=== PATIENT | female | born 1955 | race Caucasian/White ===

== ENCOUNTER 2019-07-06 19:03 | Emergency (ER) | payer MEDICAID ==
[~2019-07-06] VITALS: Ht 170.2 cm; Wt 59.0 kg
[2019-07-06 19:10] VITALS: BP_SYST 167
[2019-07-06 20:14] LABS: BASOPHILS % (AUTO) 0.4 % (0.0-2.0); HEMOGLOBIN 9.6 g/dL (12.0-16.0); LYMPHOCYTES # (AUTO) 0.8 K/uL (1.0-5.5); LYMPHOCYTES % (AUTO) 7.7 % (20.5-51.5); MEAN CORPUSCULAR HEMOGLOBIN 29 pg (27-31); MEAN CORPUSCULAR HGB CONC 34 % (32-36); MEAN CORPUSCULAR VOLUME 85 fL (79.0-98.0); NEUTROPHILS # (AUTO) 8.2 K/uL (1.8-7.7); NEUTROPHILS % (AUTO) 81.9 % (40.0-70.0); PLATELET COUNT (AUTO) 362 K/uL (130-430); RED BLOOD CELL COUNT(AUTO) 3.31 MIL/uL (4.2-6.2); RED CELL DISTRIBUTION WIDTH 15.4 % (9.0-15.0)
[2019-07-06 20:25] LABS: CALCIUM 9.7 mg/dL (8.4-11.0); CREATININE 0.94 mg/dL (0.55-1.30); POTASSIUM 3.9 mmol/L (3.5-5.1)
[2019-07-06 20:30] LABS: TOTAL BILIRUBIN 5.6 mg/dL (0.0-1.0)
[2019-07-06 21:31] LABS: BILIRUBIN,URINE 3+ (NEGATIVE); BLOOD, URINE 2+ (NEGATIVE); CLARITY/URINE SL HAZY (CLEAR); GLUCOSE,URINE NEGATIVE (NEGATIVE); KETONES,URINE 1+ (NEGATIVE); LEUKOCYTE ESTERASE ,URINE NEGATIVE (NEGATIVE); NITRITE, URINE POSITIVE (NEGATIVE); PH,URINE 5.5 (5.0-8.0); PROTEIN URINE 2+ (NEGATIVE)
[2019-07-06 21:33] LABS: COLOR,URINE AMBER (YELLOW)
[2019-07-06 21:46] LABS: BACTERIA,URINE FEW /HPF (None Seen); RBC,URINE 0-3 /HPF (0-3)
[2019-07-06] MEDS ORDERED: ONDANSETRON HCL 4 MG/2 ML VIAL IVP ONE (22:15)
[2019-07-06] MEDS ORDERED: NACL 0.9% 1,000 ML IV ONE (22:15)
[2019-07-06] MEDS ORDERED: MORPHINE 2 MG/ML INJ. SYRINGE IVP ONE (22:45)
[2019-07-07] MEDS: CEPHALEXIN 500 MG CAPSULE PO ONE ×2 (00:48→00:56)
[2019-07-07] MEDS ORDERED: SULFAMETHOXAZOLE/TRIMETHOPR DS 1 TABLET PO ONE (01:00)
[2019-07-07 01:11] VITALS: BP_SYST 142
[2019-07-07] MEDS ORDERED: MORPHINE 2 MG/ML INJ. SYRINGE IM ONE (01:45)
== END 2019-07-07 01:11 | disposition home or self-care (01) ==
LOC: SED 19:03
DX: N39.0 Urinary tract infection, site not specified (principal); C79.89 Secondary malignant neoplasm of other specified sites; R11.10 Vomiting, unspecified; R03.0 Elevated blood-pressure reading, without diagnosis of hypertension; Z90.710 Acquired absence of both cervix and uterus; Z88.1 Allergy status to other antibiotic agents; Z88.8 Allergy status to other drugs, medicaments and biological substances
CPT/HCPCS: 36415; 74176; 80053; 81000; 83690; 85025; 87086; 96361; 96372; 96374; 96375; 99284; J2270 ×2; J2405

== ENCOUNTER 2019-08-11 12:15 | Emergency (ER) | payer MEDICAID ==
[~2019-08-11] VITALS: Ht 162.6 cm; Wt 45.4 kg
--- NOTE | 2019-08-11 12:17 | NUR ---
Patient to ER bed 08 to gown for evaluation. Side rails up.
[2019-08-11 12:21] VITALS: BP_SYST 64
[2019-08-11] MEDS ORDERED: NACL 0.9% 1,000 ML IV ONE ×3 (12:45→17:00)
[2019-08-11] MEDS ORDERED: ONDANSETRON HCL 4 MG/2 ML VIAL IVP ONE (12:45)
--- NOTE | 2019-08-11 12:45 | NUR ---
# 20 gauge angiocath placed to LFA. Use of asceptic technique. Opsite placed over site. Blood return noted. Blood for lab drawn from site. Flushed with 10 cc of normal saline. No evidence of infiltration noted. Patient tolerated well.NS currently infusing.
--- NOTE | 2019-08-11 12:49 | NUR ---
# 16 FR Duncan catheter with use of sterile technique. Immediate return of 200cc lola urine noted. Bedside drainage bag placed below level of bladder. Urine sample collected and sent to lab.
--- NOTE | 2019-08-11 12:50 | NUR ---
ER at bedside examining patient.
--- NOTE | 2019-08-11 13:00 | NUR ---
pt arrives from home w/ c/o vomiting and SOB, from home. Per pt is AAOX 3. However, this am she became incoherent.
[2019-08-11 13:52] LABS: BASOPHILS # (AUTO) 0.1 K/uL (0.0-0.2); BASOPHILS % (AUTO) 0.6 % (0.0-2.0); EOSINOPHILS % (AUTO) 0.3 % (0.0-4.0); HEMOGLOBIN 12.5 g/dL (12.0-16.0); LYMPHOCYTES # (AUTO) 0.4 K/uL (1.0-5.5); LYMPHOCYTES % (AUTO) 4.5 % (20.5-51.5); MEAN CORPUSCULAR HEMOGLOBIN 27 pg (27-31); MEAN CORPUSCULAR HGB CONC 33 % (32-36); MEAN CORPUSCULAR VOLUME 81 fL (79.0-98.0); MONOCYTES # (AUTO) 0.3 K/uL (0.0-1.0); MONOCYTES % (AUTO) 2.7 % (1.7-9.3); NEUTROPHILS # (AUTO) 8.9 K/uL (1.8-7.7); NEUTROPHILS % (AUTO) 91.9 % (40.0-70.0); PLATELET COUNT (AUTO) 226 K/uL (130-430); RED BLOOD CELL COUNT(AUTO) 4.67 MIL/uL (4.2-6.2); RED CELL DISTRIBUTION WIDTH 15.8 % (9.0-15.0); WHITE BLOOD COUNT (AUTO) 9.7 K/uL (4.8-10.8)
[2019-08-11 14:08] LABS: CALCIUM 8.3 mg/dL (8.4-11.0); CREATININE 1.18 mg/dL (0.55-1.30); POTASSIUM 3.1 mmol/L (3.5-5.1)
[2019-08-11 14:19] LABS: INR 1.4 (0.8-1.2); PROTHROMBIN TIME 13.7 SECS (9.5-12.5)
[2019-08-11 14:23] LABS: ALBUMIN 2.4 g/dL (3.4-4.8); TOTAL BILIRUBIN 2.1 mg/dL (0.0-1.0)
[2019-08-11] MEDS ORDERED: PIPERACILLIN/TAZO 3.375 GM in NS 50 ML IV ONE ×2 (14:30→17:15)
[2019-08-11] MEDS ORDERED: fentaNYL CITRATE/PF 100 MCG/2 ML AMP IVP ONE (14:30)
--- NOTE | 2019-08-11 14:40 | NUR ---
pt is sat 80% on a non-rebreather. Dr. Taylor notified.
--- NOTE | 2019-08-11 14:50 | NUR ---
Dr. Taylor at the bedside intubating the patient.
--- NOTE | 2019-08-11 15:00 | NUR ---
Vent settings: 100% Fio2, TV 450, Peep 5, AC 16. ET 7 1/2 at 19 inches.
--- NOTE | 2019-08-11 15:02 | NUR ---
x-ray at the bedside to confirm ET placement.
[2019-08-11] MEDS ORDERED: PIPERACILLIN/TAZOBACTAM 3.375 GM/VIAL (ZOSYN) IV ONE (15:24)
--- NOTE | 2019-08-11 15:28 | NUR ---
pt will be admitted to the care of Dr. Joseph. Orders received.
--- NOTE | 2019-08-11 15:33 | NUR ---
med rec unalbe to be obtained. to bring home meds.
--- NOTE | 2019-08-11 15:36 | NUR ---
FiO2 titrated to 80%. O2 sat is 98%
--- NOTE | 2019-08-11 15:39 | NUR ---
Currently waiting for an ICU bed
--- NOTE | 2019-08-11 15:40 | NUR ---
Fio2 increased to 100%
--- NOTE | 2019-08-11 15:49 | NUR ---
1450 ASSISTED INTUBATION. ETT 7.5/19 AT LIP LINE. CO2 DETECTOR CHANGED TO YELLOW, BILATERAL BREATH SOUNDS AND CHEST RISE NOTED. 1502 PT ON THE VENT WITH SETTING, AC16, VT450, PEEP +5, FIO2 100%.
[2019-08-11] MEDS ORDERED: NOREPINEPHRINE BITARTRATE 4 MG in NS 246 ML IV ONE (16:30)
[2019-08-11] MEDS ORDERED: ALBUMIN HUMAN 5% 250 ML IV ONE (16:30)
--- NOTE | 2019-08-11 16:40 | NUR ---
1630 CHANGED TO AC20, PUSH DOWN ETT TO 22CM AT LIP LINE PER MD HUGO.
--- NOTE | 2019-08-11 16:45 | NUR ---
levophed drip initaited at 2mCg/min, 7.5ml/hr.
[2019-08-11] MEDS ORDERED: NOREPINEPHRINE 4 MG/4 ML VIAL IV ONE ×4 (16:48→23:54)
--- NOTE | 2019-08-11 16:48 | NUR ---
Dr. Armstrong at the bedside speaking w/ the pt's .
--- NOTE | 2019-08-11 16:55 | NUR ---
Levophed drip increased to 6mCg/hr, 22.5ml/hr.
--- NOTE | 2019-08-11 16:55 | NUR ---
Current BP is 74/36, HR 109
[2019-08-11] MEDS ORDERED: *HEPARIN PER PHARMACY XX ONE (17:00)
[2019-08-11] MEDS ORDERED: metroNIDAZOLE 500 mg/NS 100 ML IV ONE (17:00)
[2019-08-11] MEDS ORDERED: HYDROCORTISONE SOD SUCC 100 MG/2 ML VIAL IVP ONE (17:00)
--- NOTE | 2019-08-11 17:05 | NUR ---
Levophed drip increased to 8mCg/min, 30ml/hr. Current BP is 67/41
[2019-08-11] MEDS ORDERED: HEPARIN SODIUM,PORCINE 3000 UNITS/0.6 ML BOLUS IVP PRN (17:15)
[2019-08-11] MEDS ORDERED: PANTOPRAZOLE SODIUM 80 MG in NS 100 ML IV ONE (17:15)
[2019-08-11] MEDS ORDERED: HEPARIN SODIUM,PORCINE 2000 UNITS/0.4 ML BOLUS IVP PRN (17:15)
[2019-08-11] MEDS ORDERED: KCL 40 mEq in 100 mL (PREMIX) 100 ML IV ONE (17:15)
[2019-08-11] MEDS ORDERED: HEPARIN 25,000 UNITS in 250 ML PREMIX IV PRN (17:15)
--- NOTE | 2019-08-11 17:15 | NUR ---
Levophed drip increased to 8mCg/hr, 37.5ml/hr. Current BP is 68/45, Hr 114. Addendum: 08/11/19 at 1716 by ANGELI Levophed drip increased to 10mCg/hr,
--- NOTE | 2019-08-11 17:18 | NUR ---
pt daughter is at the bedside.
--- NOTE | 2019-08-11 17:34 | NUR ---
Levophed drip increased to 12mCg/min, 45ml/hr
[2019-08-11] MEDS: PANTOPRAZOLE SODIUM 40 MG in NS 50 ML IV SCH (18:06)
--- NOTE | 2019-08-11 18:10 | NUR ---
Levophed drip increased to 14ml/hr, 52.5mg.
[2019-08-11] MEDS ORDERED: PANTOPRAZOLE SODIUM 40 MG/VIAL (PROTONIX) ONE ×2 (18:15)
--- NOTE | 2019-08-11 18:21 | NUR ---
Dr. Taylor is at the bedside inserting a central line.
--- NOTE | 2019-08-11 18:34 | NUR ---
Levophed drip increased to 16mCg/hr, 60ml/hr
--- NOTE | 2019-08-11 18:45 | NUR ---
Levophed drip increased to 18mCg, 67.5ml/hr. Current BP is 70/44.
--- NOTE | 2019-08-11 19:13 | NUR ---
Levophed drip increased to 20mCg/ hr, 75ml/hr.
[2019-08-11] MEDS ORDERED: PROPOFOL DRIP 100 ML IV PRN (19:15)
--- NOTE | 2019-08-11 19:15 | NUR ---
Triple lumen central catheter inserted by Dr. Taylor on the left groin.
--- NOTE | 2019-08-11 19:19 | NUR ---
Care endorsed to Jd HOFFMAN. Pt will be transported to CT. RT is at the bedside. Current BP is at 76/42. Family is at the bedside.
[2019-08-11] MEDS ORDERED: IOHEXOL 350 mgI/mL, 150 ML INFUS..BTL IV ONE (19:27)
--- NOTE | 2019-08-11 19:29 | NUR ---
Levophed titrated to 22mcg/min, Vitals: P: 107, BP: 81/49
--- NOTE | 2019-08-11 19:39 | NUR ---
Levophed titrated to 24mcg/min. Pulse: 110, BP: 77/52
--- NOTE | 2019-08-11 19:49 | NUR ---
Levophed titrated to 26mcg/min. Pulse: 111, BP: 85/50. Will continue to monitor.
--- NOTE | 2019-08-11 20:09 | NUR ---
Levophed titrated to 28mcg/min. Pulse 112, BP: 81/52
--- NOTE | 2019-08-11 20:19 | NUR ---
Pulse: 112, BP: 90/48 will continue to monitor. Levophed will continue at 28mcg/min
[2019-08-11] MEDS: NACL 0.9% 1,000 ML IV SCH ×2 (20:28→21:50)
--- NOTE | 2019-08-11 20:32 | NUR ---
Levophed titrated to 30mcg/min. Pulse: 111, BP: 89/50. Will continue to monitor.
--- NOTE | 2019-08-11 21:30 | NUR ---
Pt's BP continues to fluctuate on Levophed drip at 30mcg/min. Will continnue to monitor, Dr Olmstead is aware.
[2019-08-11] MEDS ORDERED: PIPERACILLIN/TAZO 4.5 GM in NS 100 ML IV SCH (22:00)
[2019-08-11] MEDS ORDERED: PIPERACILLIN/TAZOBACTAM 4.5 GM/VIAL (ZOSYN) IV ONE ×2 (22:19)
--- NOTE | 2019-08-11 22:23 | NUR ---
Pt resting in bed. Continuous Levophed drip infusing at 30mcg/min. Current BP is 68/47, Pulse 102. Will continue to monitor.
--- NOTE | 2019-08-11 22:56 | NUR ---
Dr. Joseph has been notified of patient's unstable blood pressure. Was instructed to increase the max dose of Levophed to 40mcg/min and if unsuccessful begin Dopamine to be initiated at 5mcg/min. Will continue to monitor.
[2019-08-11] MEDS ORDERED: DOPamine PREMIX 250 ML IV PRN (23:00)
--- NOTE | 2019-08-11 23:02 | NUR ---
Levophed has been increased to 32mcg/min. Pulse 98, BP: 59/43. Will continue to monitor.
[2019-08-11] MEDS ORDERED: LACT10SO6 PO (23:17)
[2019-08-11] MEDS ORDERED: ONDA4TAB5 PO (23:17)
[2019-08-11] MEDS ORDERED: MORP15TA PO (23:17)
--- NOTE | 2019-08-11 23:18 | NUR ---
Levophed has been increased to 34mcg/min. Pulse 98, BP: 75/63
[2019-08-11] MEDS ORDERED: REGO40TA PO (23:21)
[2019-08-11] MEDS ORDERED: POTA20TA83 PO (23:21)
[2019-08-11] MEDS ORDERED: PROC10TA13 PO (23:21)
[2019-08-11] MEDS ORDERED: PRO40 PO (23:21)
--- NOTE | 2019-08-11 23:22 | NUR ---
Medication reconciliation completed with information provided by patient's family. Any prior medication reconciliation on file was reviewed and corrected.
--- NOTE | 2019-08-11 23:33 | NUR ---
Levophed will be titrated to 36mcg/min. Pulse 88, BP: 86/70. Will continue to monitor.
--- NOTE | 2019-08-11 23:35 | NUR ---
FiO2 has been titrated to 80%, O2 sat is 96%.
[2019-08-11] MEDS ORDERED: ALBUMIN HUMAN 25% 200 ML IV ONE (23:45)
--- NOTE | 2019-08-11 23:56 | NUR ---
Levophed titrated to 38mcg/min. Pulse 103, BP: 87/54. Will continue to monitor.
[2019-08-12] MEDS ORDERED: methylPREDNISolone SOD SUCC/PF 62.5 MG/ML VIAL IVP ONE
[2019-08-12] MEDS ORDERED: HYDROCORTISONE SOD SUCC 100 MG/2 ML VIAL IVP SCH
[2019-08-12] MEDS: PANTOPRAZOLE SODIUM 40 MG in NS 50 ML IV SCH (00:11)
[2019-08-12] MEDS ORDERED: PANTOPRAZOLE SODIUM 40 MG/VIAL (PROTONIX) ONE ×2 (00:14)
--- NOTE | 2019-08-12 00:30 | NUR ---
Pt is resting in bed, VSS are within parameters. Will continue to monitor.
[2019-08-12] MEDS ORDERED: SODIUM BICARBONATE 8.4% JECT 50 MEQ/50 ML SYRINGE IVP ONE ×2 (01:00→09:04)
[2019-08-12] MEDS ORDERED: SODIUM BICARBONATE 8.4% JECT 50 MEQ/50 ML SYRINGE IV ONE (01:00)
--- NOTE | 2019-08-12 01:00 | NUR ---
CONSULT: CONSULT CALLED FOR DR. SHARRI BARDALES I SPOKE WITH JUANITA GEORGE REASON FOR CONSULT: SEPSIS REQUESTING CONSULT; DR. VILLANUEVA SUPERVISOR FORMING AND TEMPERING PHONE NUMBER: [phone]
--- NOTE | 2019-08-12 01:02 | NUR ---
CONSULT: CONSULT CALLED FOR DR. SHARRI BARDALES I SPOKE WITH JUANITA GEORGE REASON FOR CONSULT: RESPIRATORY FAILURE REQUESTING CONSULT: DR. VILLANUEVA COPYRIGHT MANAGER PHONE NUMBER: [phone]
--- NOTE | 2019-08-12 01:05 | NUR ---
CONSULT: CONSULT CALLED FOR DR. SCHWAB I SPOKE WITH JUANITA GEORGE REASON FOR CONSULT: CANCER REQUESTING CONSULT: DR. VILLANUEVA RIGHT OF WAY MANAGER PHONE NUMBER: [phone]
--- NOTE | 2019-08-12 01:06 | NUR ---
PT STILL IN ER: I CALLED THREE MORNING CONSULTS DR. HARRELL. CATIA HUGO, TIMOTHY MAR
--- NOTE | 2019-08-12 01:07 | NUR ---
DR. VELAZCO TAKE CONSULTS 15/04 SO I DO NOT WANT TO WAKE HIM UP SO I WILL CALL HIM AT 0600
--- NOTE | 2019-08-12 01:11 | NUR ---
Levophed was titrated to 36mcg/min. Pulse 78, BP: 118/97. Will continue to monitor.
[2019-08-12] MEDS ORDERED: SODIUM BICARBONATE 8.4% JECT 50 MEQ/50 ML SYRINGE ONE (01:12)
--- NOTE | 2019-08-12 01:30 | NUR ---
Levophed titrated to 38mcg/min. Pulse 107, BP 84/59. Will continue to monitor.
[2019-08-12] MEDS ORDERED: NOREPINEPHRINE 4 MG/4 ML VIAL IV ONE (02:13)
--- NOTE | 2019-08-12 02:28 | NUR ---
Pt is resting in bed, will continue to monitor vital signs.
--- NOTE | 2019-08-12 02:43 | NUR ---
Upon assessment pt presented bradycardic on the monitor. Pulse was not palpable at this time and blood pressure was unable to be obtained. Caving Guide notified ER staff and ER MD to arrive at bedside. CPR was initiated.
--- NOTE | 2019-08-12 02:45 | NUR ---
Epinephrine 1 mg given IVP.
--- NOTE | 2019-08-12 02:48 | NUR ---
Epinephrine 1 mg given IVP.
--- NOTE | 2019-08-12 02:52 | NUR ---
No pulse present at this time. Additional Epinephrine 1 mg given IVP.
--- NOTE | 2019-08-12 02:56 | NUR ---
No pulses detected. Epinephrine 1 mg given IVP.
--- NOTE | 2019-08-12 02:59 | NUR ---
On pulse check faint pulse felt on pt's left femoral. Dr. Olmstead is aware, will continue to monitor.
--- NOTE | 2019-08-12 03:02 | NUR ---
Dopamine was initiated at 10mcg/kg/hr per Dr. Olmstead. Will continue to monitor.
--- NOTE | 2019-08-12 03:05 | NUR ---
Dopamine has been titrated to 15mcg/kg/hr at this time, per Dr. Olmstead's order. Will continue to monitor.
--- NOTE | 2019-08-12 03:06 | NUR ---
Additional Epinephrine 1 mg given IVP due to faint pulse. Will continue to monitor
--- NOTE | 2019-08-12 03:08 | NUR ---
Faint pulses are present at this time, will continue monitor.
--- NOTE | 2019-08-12 03:09 | NUR ---
Per Dr. Olmstead Dopamine has been titrated to 20mcg/kg/min. Will continue to monitor, at this time.
--- NOTE | 2019-08-12 03:10 | NUR ---
500ml Normal Saline 0.9% bolus has been initiated per Dr. Olmstead.
--- NOTE | 2019-08-12 03:11 | NUR ---
Pulse is 61bpm at this moment. Will continue to monitor.
--- NOTE | 2019-08-12 03:18 | NUR ---
Dr. Joseph has been notified and gave TO orders for 2 amps of Sodium Bicarb.
--- NOTE | 2019-08-12 03:21 | NUR ---
100meq of Sodium Bicarb has been given IVP, per Dr. Joseph's order.
[2019-08-12 03:29] VITALS: BP_SYST 69
--- NOTE | 2019-08-12 03:29 | NUR ---
Pulses are strong and regular 103, BP: 100/78. Will continue to monitor.
--- NOTE | 2019-08-12 03:42 | NUR ---
Pulse: 53 and BP: 74/57 at this time. Family states they do not want to continue to with CPR if she becomes pulseless. Dr. Olmstead, pump house engineer and ER staff are aware of this decision. Will continue to monitor.
--- NOTE | 2019-08-12 03:59 | NUR ---
Dr. Olmstead is speaking with Sam Joshi () at bedside discussing plan of care. At this time Sam would like to continue medication, but refusing CPR, additional medication, and defibrilation.
--- NOTE | 2019-08-12 04:00 | NUR ---
No pulses detected at this time. Dr. Olmstead is at bedside and is speaking with family.
--- NOTE | 2019-08-12 04:05 | NUR ---
Pulses have been checked on carotid and femoral with no palpable pulse at this time. Dr. Olmstead states time of is 404.
--- NOTE | 2019-08-12 04:12 | NUR ---
[facility] has been notified of the , spoke with Kayy Marie. States pt is eligible and will recontact in an hour with any change in condition. Case number is [id number]
--- NOTE | 2019-08-12 04:30 | NUR ---
Marcel Aldanaornmichael has been notified of the and has released the case.
--- NOTE | 2019-08-12 05:00 | NUR ---
Pt has been cleaned and transferred to bed 8 for privacy. Family at bedside.
[2019-08-12] MEDS ORDERED: methylPREDNISolone SOD SUCC/PF 62.5 MG/ML VIAL IVP SCH (06:00)
--- NOTE | 2019-08-12 06:46 | NUR ---
Oliver mckeon in ED - 08/12/19 at 0647 by [email or web address] Family has contacted their own mortuary of choice: [facility]
--- NOTE | 2019-08-12 06:47 | NUR ---
Family has contacted their own mortuary: [facility] in [place]. ETA for belt picker is 1.5 hours
[2019-08-12] MEDS ORDERED: ETOMIDATE 20 MG/ 10 ML VIAL (AMIDATE) IVP ONE (09:04)
[2019-08-12] MEDS ORDERED: ROCURONIUM BROMIDE 10 MG/ML (ZEMURON) IV ONE (09:04)
[2019-08-12] MEDS ORDERED: EPINEPHrine JECT 0.1 MG/ML SYR IVP ONE (09:04)
== END 2019-08-12 09:05 | disposition expired ==
LOC: SED 12:15 → SIC 16:58 → UNDOADMIN 16:58 → SIC 21:55 → UNDODISIN 08-12 09:05 → SED 08-12 09:05
DX: A41.9 Sepsis, unspecified organism (principal); I46.9 Cardiac arrest, cause unspecified; J96.90 Respiratory failure, unspecified, unspecified whether with hypoxia or hypercapnia; J69.0 Pneumonitis due to inhalation of food and vomit; K56.609 Unspecified intestinal obstruction, unspecified as to partial versus complete obstruction; I10 Essential (primary) hypertension; Z88.6 Allergy status to analgesic agent; Z88.1 Allergy status to other antibiotic agents; Z79.899 Other long term (current) drug therapy; Z90.89 Acquired absence of other organs
CPT/HCPCS: 31500; 36415; 36556; 36600 ×2; 51702; 71045; 74176; 80053; 82272; 82803 ×2; 83605; 84484; 85025; 85610; 85730; 87040; 92950; 93005; 94640; 96365; 96375; 99291; 99292; C9113 ×2; J0171; J1265; J1720; J2405; J2543 ×2; J2930; J3480; J3490 ×2; J7030; J7050; P9041; P9046; Q9967